=== PATIENT | male | born 1980 | race Caucasian/White ===

== ENCOUNTER → 2017-04-26 | Outpatient (CLI) | payer OTHER ==
[~2017-04-26] MED LIST: ASPEC81 PO; GABA400C PO; IBUP-1428 PO; MULT-506 PO
--- NOTE | 2017-04-27 06:28 | PAP/PSG TECHNICIAN REPORT ---
[facility] Mds Coordinator Polysomnogram Report Study name: None Report date: 04/27/2017 Study date: 04/26/2017 Referring Physician: DR. JUNITO SIDDIQUI Name: BOBBY LOPEZ Interpreting Physician: Juan Carvajal D.O. Date of : 1980 Mds Coordinator: Tho Mcgregor RPSGT. Sex: Male Age: 37 StudyType: PSG Weight: 172 Height: 37 years, Height 5'9 BMI: 25.4 Medications: GABAPENTIN 800 MG, IBUPROFEN 800 MG, MELOXICAN 15 MG, TRAMADOL 5 MG, OMEPRAZOLE 20 MG Patient History PATIENT HAS HISTORY OF FATIGUE, INSOMNIA, COGNITIVE DIFFICULTIES AND SNORING. HE IS HERE TODAY FOR AN EVALUATION FOR CURLY. ESS = 4 RM 5 Parameters Monitored NPSG: E1-M2, E2-M1, Fp1-M2, Fp2-M1, F3-M2, F4-M2, F4-M1, C3-M2, C4-M2, C4-M1, O1-M2, O2-M2, O2-M1, T3-M2, T4-M1, P3-M2, P4-M1, CHIN1, CHIN2, HR, EKG, Legs, PFLOW, SNOR, FLOW, CFLOW, Tidal Volume, THOR, ABDO, SpO2, PLTH, CPRESS, ETCO2 Wave, ETCO2, pH Sleep Architecture Sleep Stages Time at Lights Off 9:50:25 PM STAGES Time (min.) TST (%) Time at Lights On 5:30:55 AM Wake 112.5 -- Total Recording Time (TRT) 461.00 min. N1 6.0 2 Total Sleep Period (TSP) 352.5 min. N2 227.0 65 Total Sleep Time (TST) 348.0min. N3 74.5 21 Awake Time 112.5 min. REM 40.5 12 Wake after Sleep Onset 4.5 min. Sleep Efficiency (SE) 76 % Sleep Onset Latency (KRISHNA) 108.0 min. Number of Stage 1 Shifts None Awakenings 6 Stage Changes 28 Number of REM periods 2 REM 40.5 12 REM Latency 93.5 min. NREM 307.5 88 Body Position Analysis Supine Right Left Side Prone Vertical Total Sleep Time (min.) 143.2 27.4 223.4 250.77 0.0 0.0 Total Sleep Time (%) 28% 8% 64% 72 0% N/A% Total Sleep Time REM (min.) 0.0 21.0 19.5 None 0.0 0.0 Total Sleep Time NREM (min.) 97.2 6.4 203.9 None 0.0 0.0 Intermittent Wake (min.) 45.9 1.3 65.3 None 0.0 0.0 Total Sleep Period (%) 28% None None None None None Arousals Myoclonus (PLM) * Events Count Index Events Count Index Spontaneous 14 2 Events Awake (PLMW) 29 15.5 Respiratory 0 0.0 Events Asleep w/ Arousal (PLMA) 0 0.0 PLM 0 0 Events Asleep w/o Arousal (PLMS) 4 0.7 Snoring 0 0 Total Asleep 4 0.7 Total 14 2 Total 33 4 Respiratory Analysis * CA OA MA CH H RERA Total Count 0 0 0 0 1 0 1 Index 0.0 0.0 0.0 0 0.2 0 0.2 Mean Duration 0.0 0.0 0.0 0.00 11.0 0.0 11.0 Longest Duration 0.0 0.0 0.0 0.00 0.0 0.0 11.0 Respiratory Event Summary Total Supine ~Supine Right Left Prone REM NREM Apneas Count 0 0 0 0 0 N/A 0 0 Index 0.0 0 0 0.0 0.0 N/A 0 0 Hypopneas (4% Desat) Count 1 0 1 0 1 N/A 0 1 Index 0.2 0.0 0 0.0 0.3 N/A 0.0 0.2 Apneas & All Hypopneas Count 1 0 1 0 1 N/A 0 1 Index 0.2 0 0 0 0 N/A 0.0 0.2 Respiratory Events (Air Sampling And Monitoring+All Hyp+RERA) Count 1 0 1 0 1 N/A 0 1 Index 0.2 0 0 0.0 0.3 N/A 0.0 0.2 Respiratory Related Arousal Count 0 0 0 0 0 N/A 0 0 Index 0.0 0 0 0 0 N/A 0 0 Snoring Analysis Supine Right Left Prone REM NREM Total Snore duration 1.1 min Snores count 7 31 7 N/A 22 23 45 Snore mean duration 1.5 Sec Snores index 4 68 2 N/A 32.6 4.5 7.8 TST with snoring (%) 0.3% Desaturation Event Summary: Minimum %SpO2 Event Count Mean/Min/Max Duration(sec.) Desaturation Index % Time In Bed > 90 6 23.1 / 16.0 / 32.5 0.8 99.8 86 - 90 1 25.0 / 25.0 / 25.0 100.7 0.1 81 - 85 0 N/A 0.0 0.1 76 - 80 0 N/A 0.0 0.0 71 - 75 0 N/A 0.0 0.0 66 - 70 0 N/A 0.0 0.0 61 - 65 0 N/A 0.0 0.0 56 - 60 0 N/A 0.0 0.0 51 - 55 0 N/A 0.0 0.0 < 50 0 N/A 0.0 0.0 Total REM NREM Awake <50% 0.0 min. 0.0 min. 0.0 min. 0.0 min. 51 - 60% 0.0 min. 0.0 min. 0.0 min. 0.0 min. 61 - 70% 0.0 min. 0.0 min. 0.0 min. 0.0 min. 71 - 80% 0.0 min. 0.0 min. 0.0 min. 0.0 min. 81 - 90% 0.9 min. 0.0 min. 0.3 min. 0.5 min. 91 - 100% 451.8 min. 40.5 min. 304.0 min. 107.3 min. Average 93 93 93 95 Minimum SpO2 82 91 88 82 Desaturation Event Index 0.8 0.0 0.2 2.7 # Desat. Events below 89% 3 N/A N/A 3 Time(%) with Saturation below 89% 0.1 0.0 0.0 0.1 Time(min.) with Saturation below 89% 0.5 0.0 0.0 0.5 Time (mins) REM (mins) NREM (mins) % of TST SpO2 Below 90% N/A N/A NN/A 0.0 SpO2 Below 88% 0 0 0 0 Heart Rate Analysis Min (bpm) Max (bpm) Average (bpm) Awake 34 127 67 NREM 53 96 66 REM 64 79 71 Overall 53 96 67 Supplemental O2 Values Minimum O2 level: None Value Start Time End Time Mds Coordinator Comments Mr. Lopez slept in the right, left and supine positions. No cardiac arrhythmia noted. Leg movements noted. No bruxism noted. Snoring was noted and scored as a 1 on a scale of 1 through 5. (0=no snoring, 5=snoring loud enough to be heard through a closed door or down the joiner way) Mr. Lopez awoke to use the restroom 0 times during the night. Mr. Lopez stated I slept as well as I do when I am in my own bed. Patient mentioned he was here because he couldn't fall asleep until 1 am. I asked patient to put away all electronic devices by 11pm. The final report will be interpreted and signed by a sleep physician. The completed physician report will then be placed in the patient medical record. Therapy (cm H2O) 0 TIB (min.) 460.5 TST (min.) 348.0 Sleep Onset (min.) 108.0 REM Onset From Sleep (min.) 93.5 Sleep Efficiency % 76 Wakefulness (%) 24 Wakefulness (min.) 112.5 NREM 1 (%) 2 NREM 1 (min.) 6.0 NREM 2 (%) 65 NREM 2 (min.) 227.0 NREM 3 (%) 21 NREM 3 (min.) 74.5 REM (%) 12 REM (min.) 40.5 # Arousals 14 Arousal Index 2 # Snore 45 Snore Index 7.8 AHI 0.2 AHI Supine 0 AHI Non-Supine 0 NREM AHI 0.2 REM AHI 0.0 RDI 0.2 # Obstructive Apnea 0 # Central Apnea 0 # Mixed Apnea 0 # Hypopneas 1 RERAs 0 Total Respiratory Events 1 Time Below SpO2 89% (min.) 0.0 Mean NREM SpO2 (%) 93 Mean REM SpO2 (%) 93 Mean Sleep SpO2 (%) 93 Min NREM SpO2 (%) 88 Min REM SpO2 (%) 91 Position Supine (min.) 143.2 Position Non-supine (min.) 250.8 LM Index Sleep 0.7 LM Index NREM 0.8 LM Index REM 0.0 Mean Heart Rate (bpm) 67 Min Heart Rate (bpm) 53
--- NOTE | 2017-05-02 13:35 | Sleep Study ---
Sleep Study Report Date of Service: 04/26/2017 Sleep Study Report Clinical data: The patient is referred by Dr. Jerod Anthony for a sleep evaluation. He is a 37- year-old male with a history of fatigue, insomnia, cognitive difficulties, and snoring. His [place] sleepiness score is 4 out of a possible 24. This was an in -lab overnight polysomnography. Sleep architecture: The total sleep period was 352.5 minutes. The total sleep time was 348 minutes. The sleep efficiency was moderately reduced to 76 percent. The sleep latency was severely prolonged to 108 minutes. Wake after sleep onset was only 4.5 minutes. The REM latency was normal at 93.5 minutes. Sleep consisted of stage N1 2 percent, stage N2 65 percent, stage N3 21 percent, and stage REM 12 percent. Arousal data: The patient had 14 arousals all of which were spontaneous. The arousal index was 2. PLM data: The patient had a total of 4 periodic limb movements of sleep for a PLM index of 0.7. There were 0 arousals associated with limb movements. EKG: The underlying cardiac rhythm was normal sinus. The cardiac rates ranged from 53 to 96 beats per minute. No a arrhythmias were noted. Respiratory data: The patient had a total of only 1 respiratory event, a hypopnea. Hypopneas were scored according to the 4 percent desaturation rule. The apnea-hypopnea index was normal at 0.2. This would suggest no significant sleep apnea. The Oximetry data: The average saturation during the night was 93 percent. The minimum saturation was 82 percent but this was very transient. There was a total of only 0.5 minutes with saturations less than 89 percent. Education Sales Consultant comments: The patient slept on the right, left, and supine positions. No cardiac arrhythmia noted. No bruxism noted. Snoring was noted and scored as a 1 on a scale of 1 through 5. The patient did not awaken to use the restroom at night. The patient mentioned that he usually has problems falling asleep until 1 a.m.. Impressions: 1. No evidence of obstructive sleep apnea 2. Sleep onset insomnia Comments: The patient had a very prolonged sleep latency. It is notable that for about the 1st 45 minutes of the study the patient was looking at things on his phone. Once he fell asleep his sleep was very well consolidated with few awakenings and arousals. He did not have any limb movement disorder. His oxygenation was normal. Recommendations: 1. The patient should follow up with Dr. Jerod Anthony 2. The patient should be advised of the appropriate principles of sleep hygiene including having a regular sleep-wake schedule and allowing 7.5 hours for sleep time on a nightly basis Copies To 1: Juan Carvajal DO; Jerod Anthony,[place].
== END | disposition home or self-care (01) ==
LOC: C.NEUR 20:00
PROVIDERS: ATTEND Family Medicine
DX: R53.83 Other fatigue (principal); G47.09 Other insomnia